=== PATIENT | male | born 1940 | race Caucasian/White ===

== ENCOUNTER 2017-08-18 10:57 | Emergency (ER) | payer OTHER, BC ==
[~2017-08-18] VITALS: Ht 182.9 cm; Wt 63.8 kg
[~2017-08-18 10:57] MED LIST: ATORVASTATIN CA20 MG PO; CELEBREX200 MG PO; GLUCOTROL XL10 MG PO; HYDROCODON-ACE1 EAC7 PO; LIPITOR20 MG PO; LO-DOSE ASPIRIN81 M1 PO; NORCO 5/3251 TABLET PO; PLAVIX75 MG PO; TEMAZEPAM PO; VENTOLIN HFA18 GM PO; VOLTAREN50 MG PO; ZETIA10 MG PO
[2017-08-18 11:21] LABS: BASOPHIL (%) 0.1 % (0-1); EOSINOPHIL (%) 0 % (0-5); HEMOGLOBIN 15.6 G/DL (12.5-16.6); IMMATURE GRANULOCYTE (%) 0.4 % (0.0-0.7); LYMPHOCYTE (%) 2.8 % (15-42); LYMPHOCYTE COUNT 0.2 K/uL (1.0-2.8); MCHC 33.9 G/DL (30.0-36.0); MCV 91.5 FL (86-99); MONOCYTE (%) 9.4 % (3-12); MONOCYTE COUNT 0.8 K/uL (0-0.8); NEUTROPHIL (%) 87.3 % (45-76); NEUTROPHIL COUNT 7.3 K/uL (1.8-6.4); PLATELET COUNT 195 K/uL (156-360); RBC DIS.WIDTH-CV 12.4 % (11.8-14.6); RBC DIS.WIDTH-SD 41.4 % (39-53); RED BLOOD COUNT 5.03 M/uL (4.00-5.50); WHITE BLOOD COUNT 8.3 K/uL (4.1-10.2)
[2017-08-18 11:37] LABS: CHLORIDE 100 mEq/L (99-109); POTASSIUM 5.3 mEq/L (3.7-5.4); SODIUM 136 mEq/L (136-147)
[2017-08-18 11:39] LABS: GLUCOSE 128 mg/dL (70-99)
[2017-08-18 11:43] LABS: CREATININE 1.6 mg/dL (0.6-1.3); GFR ESTIMATE (CALCULATED) 45 mL/min/ (58.99-99999)
[2017-08-18 11:44] LABS: UREA NITROGEN (BUN) 25 mg/dL (9-23)
[2017-08-18 11:51] LABS: TROP-I INTERPRETATION NEGATIVE; TROPONIN-I 0.02 ng/mL (0.0-0.30)
[2017-08-18 13:13] LABS: APPEARANCE SL.HAZY ((CLEAR)); BILIRUBIN NEGATIVE; BLOOD MODERATE; COLOR AMBER ((YELLOW)); GLUCOSE (STRIP) NEGATIVE; KETONES 20; LEUKOCYTES SMALL; NITRITE POSITIVE; PROTEIN (STRIP) 100; SPECIFIC GRAVITY 1.024 (1.000-1.030); UROBILINOGEN 0.2 MG/DL (0.2-1.0)
[2017-08-18 13:53] LABS: BACTERIA 3+ /HPF; EPITHELIAL CELLS 2+ /HPF; MUCUS NONE SEEN /LPF; RED BLOOD CELLS 20-30 /HPF (0-5); UCUL ADDED? YES; WHITE BLOOD CELLS 20-30 /HPF (0-5)
[2017-08-18 13:54] LABS: COARSE GRANULAR CASTS RARE /LPF; HYALINE CASTS 0-5 /LPF
[2017-08-18] MEDS ORDERED: CIPRO500 MG PO (14:16)
[2017-08-18 15:24] VITALS: BP 148/78
== END 2017-08-18 15:24 | disposition home or self-care (01) ==
LOC: EME → EDBD 10:57 → EME 10:57
PROVIDERS: Emergency Medicine
DX: J06.9 Acute upper respiratory infection, unspecified (principal); N39.0 Urinary tract infection, site not specified; E11.9 Type 2 diabetes mellitus without complications; I25.2 Old myocardial infarction; Z79.02 Long term (current) use of antithrombotics/antiplatelets; Z79.82 Long term (current) use of aspirin; Z79.84 Long term (current) use of oral hypoglycemic drugs; Z79.891 Long term (current) use of opiate analgesic; Z87.891 Personal history of nicotine dependence; Z86.73 Personal history of transient ischemic attack (TIA), and cerebral infarction without residual deficits; Z90.49 Acquired absence of other specified parts of digestive tract
CPT/HCPCS: 70450; 71045; 80048; 81003; 84484; 85025; 87086; 93005; 94640; 99281; 99285; G8978 GP CM; G8979 GP CK; G8987 GO CM; G8988 GO CL